=== PATIENT | male | born 1985 | race Hispanic/Latino ===

== ENCOUNTER 2023-05-03 00:04 | Emergency (ER) | payer OTHER, SELFPAY ==
[2023-05-03] MEDS ORDERED: Dexamethasone 10 MG/ML VIAL ONE (00:34)
[2023-05-03] MEDS ORDERED: fentaNYL 50 mcg/mL 1 mL Vial ONE (00:34)
[2023-05-03] MEDS ORDERED: Ketorolac Tromethamine 30 MG/ML VIAL ONE (00:34)
[2023-05-03] MEDS ORDERED: LORazepam 2 MG/ML SYR.(CARPUJECT) ONE (00:35)
== END 2023-05-03 01:34 | disposition home or self-care (01) ==
LOC: ERS 00:04
DX: M51.26 Other intervertebral disc displacement, lumbar region (principal); F17.210 Nicotine dependence, cigarettes, uncomplicated; F17.220 Nicotine dependence, chewing tobacco, uncomplicated
CPT/HCPCS: 96374; 96375; J1100; J1885; J2060; J3010